=== PATIENT | male | born 1985 | race Asian ===

== ENCOUNTER 2017-11-18 10:40 | Emergency (ER) | payer OTHER ==
[2017-11-18 10:46] VITALS: RESP 18
--- NOTE | 2017-11-18 11:18 | EDPHY ---
H & P Stated Complaint: sob/cough last week/continued chest tightness/dizzyness Time Seen by Provider: 11/18/17 11:01 HPI/ROS: CHIEF COMPLAINT: Presyncope, cough last week, dyspnea HISTORY OF PRESENT ILLNESS: The patient is referred to the emergency department from urgent care for evaluation of symptoms of presyncope, a resolved cough and mild dyspnea. The patient also complains of some right posterior thoracic pain. The patient does have a history of a recent long car ride to [place]. He has no complaints of asymmetric calf pain or swelling. He has remote history of smoking. The patient denies significant additional past medical history. The patient denies any melena. He has had a constellation of symptoms including mild ongoing dyspnea since a slight cough several days ago. He has felt vaguely lightheaded over the past several days. REVIEW OF SYSTEMS: A comprehensive 10 point review of systems is otherwise negative aside from elements mentioned in the history of present illness. Source: Patient - Personal History Current Tetanus/Diphtheria Vaccine: Unsure - Medical/Surgical History Hx Asthma: No Hx Chronic Respiratory Disease: No Hx Diabetes: No Hx Cardiac Disease: No Hx Renal Disease: No Hx Cirrhosis: No Hx Alcoholism: No Hx HIV/AIDS: No Hx Splenectomy or Spleen Trauma: No Other PMH: denies - Social History Smoking Status: Former smoker - Physical Exam Exam: General Appearance: Alert, no distress Eyes: Pupils equal and round no pallor or injection ENT, Mouth: Mucous membranes moist Respiratory: There are no retractions, lungs are clear to auscultation Cardiovascular: Regular rate and rhythm Gastrointestinal: Abdomen is soft and nontender, no masses, bowel sounds normal Neurological: A&O, normal motor function, normal sensory exam, normal cranial nerves Skin: Warm and dry, no rashes Musculoskeletal: Neck is supple nontender Extremities: symmetrical, full range of motion Constitutional: Initial Vital Signs Temperature (C) 36.5 C 11/18/17 10:43 Heart Rate 81 11/18/17 10:43 Respiratory Rate 18 11/18/17 10:43 Blood Pressure 123/109 H 11/18/17 10:43 O2 Sat (%) 94 11/18/17 10:43 O2 Delivery Mode Room Air Allergies/Adverse Reactions: No Known Allergies Allergy (Unverified 11/18/17 10:43) Home Medications: Medication Instructions Recorded Albuterol [Ventolin Hfa Inhaler] 2 puffs IH QID PRN #1 mdi 11/18/17 Medical Decision Making - Diagnostics EKG Interpretation: EKG: Complete interpretation has been separately recorded in the [employer] archive. Summary impression: Sinus rhythm, left anterior fascicular block Imaging Results: Imaging Impressions Chest X-Ray 11/18/17 11:45 Impression: Mild cardiac silhouette enlargement. ED Course/Re-evaluation: The patient is referred to the emergency department for evaluation of dizziness , mild dyspnea and vague posterior thoracic pain. The patient has no risk factors for DVT/PE aside from a recent long car ride. The patient was noted to be hemodynamically stable in the ED. The patient has no evidence of an obvious arrhythmia noted on his EKG. The patient's D-dimer is negative which I feel adequately excludes pulmonary embolism in this low risk by Wells criteria patient. The patient's chest x-ray demonstrates no evidence of acute disease he is not anemic nor does he have a metabolic abnormality. I do believe the patient simply may be having vasovagal episode from a recent viral illness. The patient will be given a prescription for an albuterol inhaler. The patient is advised to follow up with Cardiology for any ongoing symptoms of lightheadedness. The patient is instructed to return to the ED for markedly worsening symptoms or other concerns. Differential Diagnosis: Differential diagnosis considered includes arrhythmia, pneumonia, pulmonary embolism, anemia, metabolic abnormality - Data Points Laboratory Results: Laboratory Results 11/18/17 11:14 11/18/17 11:14 11/18/17 11/18/17 11/18/17 11:14 11:14 11:14 WBC 5.48 10^3/uL 10^3/uL (3.80-9.50) RBC 5.15 10^6/uL 10^6/uL (4.40-6.38) Hgb 16.5 g/dL g/dL (13.7-17.5) Hct 46.5 % % (40.0-51.0) MCV 90.3 fL fL (81.5-99.8) MCH 32.0 pg pg (27.9-34.1) MCHC 35.5 g/dL g/dL (32.4-36.7) RDW 11.7 % % (11.5-15.2) Plt Count 253 10^3/uL 10^3/uL (150-400) MPV 9.8 fL fL (8.7-11.7) Neut % (Auto) 65.8 % % (39.3-74.2) Lymph % (Auto) 22.3 % % (15.0-45.0) Scott % (Auto) 8.4 % % (4.5-13.0) Eos % (Auto) 1.5 % % (0.6-7.6) Baso % (Auto) 1.5 % % (0.3-1.7) Nucleat RBC Rel Count 0.0 % % (0.0-0.2) Absolute Neuts (auto) 3.61 10^3/uL 10^3/uL (1.70-6.50) Absolute Lymphs (auto) 1.22 10^3/uL 10^3/uL (1.00-3.00) Absolute Monos (auto) 0.46 10^3/uL 10^3/uL (0.30-0.80) Absolute Eos (auto) 0.08 10^3/uL 10^3/uL (0.03-0.40) Absolute Basos (auto) 0.08 10^3/uL 10^3/uL (0.02-0.10) Absolute Nucleated RBC 0.00 10^3/uL 10^3/uL (0-0.01) Immature Gran % 0.5 % % (0.0-1.1) Immature Gran # 0.03 10^3/uL 10^3/uL (0.00-0.10) D-Dimer < 0.27 ug/mLFEU ug/mLFEU (0.00-0.50) Sodium 147 mEq/L H mEq/L (134-144) Potassium 4.5 mEq/L mEq/L (3.5-5.2) Chloride 109 mEq/L mEq/L (97-110) Carbon Dioxide 24 mEq/l mEq/l (22-31) Anion Gap 14 mEq/L mEq/L (8-16) BUN 13 mg/dL mg/dL (7-23) Creatinine 1.0 mg/dL mg/dL (0.7-1.3) Estimated GFR > 60 Glucose 92 mg/dL mg/dL (70-100) Calcium 9.6 mg/dL mg/dL (8.5-10.4) Departure - Departure Disposition: Home, Routine, Self-Care Clinical Impression: Acute bronchitis, Pre-syncope Condition: Good Instructions: Syncope (DC) Additional Instructions: 1. There is no evidence of pneumonia or blood clot based upon the testing done in the emergency department today. 2. I believe you simply may be dehydrated from a recent bronchitis. 3. Please use an albuterol inhaler as needed for shortness of breath. 4. Please use ibuprofen as needed for pain. 5. Please follow up with your primary care provider. If you do not have 1 you have been given the contact number of our on-call primary care provider Dr. Reji Sapp who will be happy to see you in follow-up. Referrals: Nima Pantoja MD [Medical Doctor] - As per Instructions
[2017-11-18 11:26] LABS: PLATELET COUNT 253 10^3/uL (150-400)
[2017-11-18 12:48] VITALS: BP 130/93; PULSE 79; TEMP 98.2; O2SAT 95
--- NOTE | 2017-11-18 12:55 | CPEKG ---
Heart Rate: 65 RR Interval: 923 P-R Interval: 160 QRSD Interval: 100 QT Interval: 392 QTC Interval: 408 P [place]: 18 QRS [place]: 243 T Wave [place]: 14 EKG Severity - ABNORMAL ECG - EKG Impression: SINUS RHYTHM EKG Impression: LAD, CONSIDER LEFT ANTERIOR FASCICULAR BLOCK Electronically Signed By: Puma Monzon 18-Nov-2017 12:56:19
== END 2017-11-18 12:56 | disposition home or self-care (01) ==
DX: J20.9 Acute bronchitis, unspecified (principal); R55 Syncope and collapse; Z87.891 Personal history of nicotine dependence